=== PATIENT | female | born 1975 | race Caucasian/White ===

== ENCOUNTER 2024-01-15 11:24 | Emergency (ER) | payer OTHER ==
[~2024-01-15] VITALS: Ht 170.2 cm; Wt 95.3 kg
[2024-01-15 11:34] VITALS: BP 145/73; TEMP 98.5; O2SAT 98
[2024-01-15] MEDS ORDERED: GUAI1TBM19 PO (13:47)
== END 2024-01-15 13:54 | disposition home or self-care (01) ==
LOC: ER 11:29
DX: J06.9 Acute upper respiratory infection, unspecified (principal); K74.60 Unspecified cirrhosis of liver; Z20.822 Contact with and (suspected) exposure to COVID-19
CPT/HCPCS: 71045-TC